=== PATIENT | male | born 1950 | race Caucasian/White ===

== ENCOUNTER 2018-09-28 07:02 | Day surgery (SDC) | payer OTHER ==
[~2018-09-28] VITALS: Ht 167.6 cm; Wt 79.1 kg
[2018-09-28 08:13] VITALS: Ht 167.6 cm; Wt 79.1 kg
[2018-09-28] MEDS ORDERED: ASA 81 (08:19)
[2018-09-28] MEDS ORDERED: POTASSIUM CL (08:19)
[2018-09-28] MEDS ORDERED: AMLODIPINE (08:19)
[2018-09-28] MEDS ORDERED: TRUVADA (08:19)
[2018-09-28] MEDS ORDERED: FLOMAX (08:19)
[2018-09-28] MEDS ORDERED: ATORVASTATIN (08:19)
[2018-09-28] MEDS ORDERED: HCTZ (08:19)
[2018-09-28] MEDS ORDERED: LOSARTAN (08:19)
[2018-09-28 10:00] VITALS: BP 127/77; PULSE 73; RESP 19
[2018-09-28] MEDS ORDERED: FENTAnyl 50 MCG/ML VIAL ONE (10:28)
[2018-09-28] MEDS ORDERED: MIDAZOLAM 1 MG/ML 2 ML INJ ONE ×2 (10:28→10:29)
[2018-09-28 10:45] VITALS: BP 141/81; PULSE 74; RESP 16
== END 2018-09-28 10:39 | disposition home or self-care (01) ==
LOC: GIL 07:02
PROVIDERS: ATTEND Internal Medicine Gastroenterology
DX: Z12.11 Encounter for screening for malignant neoplasm of colon (principal); D12.5 Benign neoplasm of sigmoid colon; K57.30 Diverticulosis of large intestine without perforation or abscess without bleeding; K64.0 First degree hemorrhoids; I10 Essential (primary) hypertension
CPT/HCPCS: 45380; 88305; J2250; J3010; Z7610